=== PATIENT | female | born 1955 | race African-American/Black ===

== ENCOUNTER 2022-07-24 16:02 | Inpatient (IN) | payer MEDICARE, OTHER ==
[~2022-07-24] VITALS: Ht 170.2 cm; Wt 22.0 kg
[2022-07-24] MEDS ORDERED: ATENOLOL 25 MG TAB PO ONE (16:45)
[2022-07-24] MEDS ORDERED: MECLIZINE HCL 25 MG TAB PO ONE (19:15)
[2022-07-24] MEDS ORDERED: METOCLOPRAMIDE HCL 5MG/ml INJ 2ml VIAL IV ONE (19:15)
[2022-07-24 19:43] LABS: Basophils # (auto) 0.1 10 ^3/uL (0-0.2); Basophils % (auto) 1.4 % (0.0-2.0); Eosinophils # (auto) 0.1 10 ^3/uL (0-0.8); Eosinophils % (auto) 1.2 % (0.0-7.0); Hemoglobin 12.9 g/dL (12.2-16.2); Lymphocytes # (auto) 2.3 10 ^3/uL (0.4-5.4); Lymphocytes % (auto) 42.7 % (10.0-50.0); Mean Corpuscular Hemoglobin 31.9 pg (28.0-32.0); Mean Corpuscular Hgb Conc. 32.2 g/dL (32.0-36.0); Mean Corpuscular Volume 98.9 fL (80.0-100.0); Monocytes # (auto) 0.4 10 ^3/uL (0-1.3); Monocytes % (auto) 7.8 % (0.0-12.0); Neutrophils # (auto) 2.5 10 ^3/uL (1.6-8.6); Neutrophils % (auto) 46.9 % (37.0-80.0); Nucleated Red Blood Cells % 0.2 %; Red Blood Cells 4.05 10^6/uL (4.0-5.20); Red Cell Distribution Width 16.2 % (11.8-14.3); White Blood Cell 5.3 10^3/uL (4.4-10.8)
[2022-07-24] MEDS ORDERED: ENOXAPARIN SOD 100 MG/1 ML SYRINGE SC ONE (22:00)
[2022-07-24] MEDS ORDERED: ASPirin 325 MG TAB PO ONE (22:00)
[2022-07-24 23:07] LABS: Albumin 3.3 g/dL (3.4-5.0); Calcium 9.1 mg/dL (8.5-10.1); Magnesium 1.2 mg/dL (1.6-2.6); Potassium 5.5 mmol/L (3.5-5.1)
[2022-07-24 23:10] LABS: Bilirubin, Total 0.6 mg/dL (0.2-1.0); Total Protein 7.7 g/dL (6.4-8.2)
[2022-07-25] MEDS ORDERED: ONDANSETRON HCL 4 MG/2 ML VIAL IV PRN (00:45)
[2022-07-25] MEDS ORDERED: SODIUM ZIRCONIUM CYCL 10 GM PAK PO ONE (00:45)
[2022-07-25] MEDS ORDERED: NITROGLYCERIN 0.4 MG SL TAB SL PRN (00:45)
[2022-07-25] MEDS ORDERED: MORPHINE SULFATE INJ 2 MG/ml SYRG IV PRN (00:45)
[2022-07-25] MEDS ORDERED: DEXTROSE (50%) 50ML SYRG IV PRN (00:45)
[2022-07-25 02:46] LABS: INR 1.11 (0.9-1.15); Partial Thromboplastin Time 36.7 sec (24.6-33.4)
[2022-07-25] MEDS: InsuLIN REG 1unit/0.01ml Soln (100units/ml) SC SCH ×3 (06:00→18:39)
[2022-07-25] MEDS: ACCU-CHEK COMFORT CURVE STRIP VI SCH ×3 (06:19→18:39)
[2022-07-25 06:37] LABS: Urine Bacteria FEW /hpf (None Seen); Urine Blood 1+ /uL (Negative); Urine Mucus FEW (None Seen); Urine Specific Gravity 1.008 (1.001-1.035); Urine WBC 1 /hpf (0 - 5)
[2022-07-25 06:41] LABS: Alcohol, Urine < 3.0 mg/dL (0-10); Amphetamine Screen, Urine NEGATIVE (NEGATIVE); Barbiturate Scree,Urine NEGATIVE (NEGATIVE); Benzodiazephine Screen, Urine NEGATIVE (NEGATIVE); Cannabinoid Screen, Urine NEGATIVE (NEGATIVE); Cocaine Screen, Urine NEGATIVE (NEGATIVE); Opiate Scree,Urine NEGATIVE (NEGATIVE); Phencyclidine Screen, Urine NEGATIVE (NEGATIVE)
[2022-07-25] MEDS ORDERED: hydrALAZINE HCL 20 MG/ML VL IV PRN (09:30)
[2022-07-25] MEDS ORDERED: PANTOPRAZOLE 40 MG TAB PO SCH (10:00)
[2022-07-25 10:17] LABS: Creatinine, Urine 32 mg/dL (30.0-125.0); Sodium Urine 126 mmol/L (40-220)
[2022-07-25] MEDS: NIFEdipine ER 30 MG TAB PO SCH (10:25)
[2022-07-25] MEDS: ASPirin 81 mg TAB PO SCH (10:25)
[2022-07-25] MEDS: FUROSEMIDE 40 MG TAB PO SCH (10:26)
[2022-07-25] MEDS: ATENOLOL 25 MG TAB PO SCH ×2 (10:29→23:15)
[2022-07-25] MEDS: SODIUM BICARBONATE 50ML VIAL 50 ML in SOD CHL 0.45% 1,000 ML IV SCH ×2 (10:48→20:15)
[2022-07-25 18:39] LABS: Albumin 2.7 g/dL (3.4-5.0); BUN/Creatinine Ratio 15.2; Calcium 7.6 mg/dL (8.5-10.1); Potassium 3.9 mmol/L (3.5-5.1)
[2022-07-25 18:42] LABS: Bilirubin, Total 0.5 mg/dL (0.2-1.0); Total Protein 6.4 g/dL (6.4-8.2)
[2022-07-25 20:39] LABS: Hepatitis C Antibody Negative (Negative)
[2022-07-25] MEDS ORDERED: PRAVASTATIN SODIUM 20 MG TAB PO SCH (22:00)
[2022-07-25 22:53] VITALS: BP 135/70
[2022-07-25] MEDS: MECLIZINE HCL 25 MG TAB PO PRN (23:14)
[2022-07-25 23:56] VITALS: BP 135/77
[2022-07-26] MEDS ORDERED: ISON100T32 PO (00:13)
[2022-07-26] MEDS ORDERED: PSEU30TA3 PO (00:13)
[2022-07-26] MEDS: ACCU-CHEK COMFORT CURVE STRIP VI SCH ×5 (00:55→23:37)
[2022-07-26] MEDS: InsuLIN REG 1unit/0.01ml Soln (100units/ml) SC SCH ×5 (00:55→23:37)
[2022-07-26 05:00] VITALS: BP 129/71
[2022-07-26] MEDS: SODIUM BICARBONATE 50ML VIAL 50 ML in SOD CHL 0.45% 1,000 ML IV SCH ×2 (05:22→18:18)
[2022-07-26 06:19] LABS: Basophils # (auto) 0.1 10 ^3/uL (0-0.2); Basophils % (auto) 1.2 % (0.0-2.0); Eosinophils # (auto) 0.1 10 ^3/uL (0-0.8); Eosinophils % (auto) 2.4 % (0.0-7.0); Hematocrit 36.3 % (36.0-46.0); Hemoglobin 12.1 g/dL (12.2-16.2); Lymphocytes % (auto) 51.3 % (10.0-50.0); Mean Corpuscular Hemoglobin 32.6 pg (28.0-32.0); Mean Corpuscular Hgb Conc. 33.3 g/dL (32.0-36.0); Mean Corpuscular Volume 97.9 fL (80.0-100.0); Monocytes # (auto) 0.6 10 ^3/uL (0-1.3); Monocytes % (auto) 10.9 % (0.0-12.0); Neutrophils % (auto) 34.2 % (37.0-80.0); Nucleated Red Blood Cells % 0.2 %; Red Blood Cells 3.71 10^6/uL (4.0-5.20); Red Cell Distribution Width 15.6 % (11.8-14.3); White Blood Cell 5.9 10^3/uL (4.4-10.8)
[2022-07-26 06:30] LABS: Calcium 8.1 mg/dL (8.5-10.1); Potassium 4.2 mmol/L (3.5-5.1)
[2022-07-26 06:33] LABS: BUN/Creatinine Ratio 15.5
[2022-07-26 06:35] LABS: Bilirubin, Total 0.5 mg/dL (0.2-1.0); Total Protein 6.2 g/dL (6.4-8.2)
[2022-07-26 09:00] VITALS: BP 132/75
[2022-07-26] MEDS: ASPirin 81 mg TAB PO SCH (09:54)
[2022-07-26] MEDS: NIFEdipine ER 30 MG TAB PO SCH (09:55)
[2022-07-26] MEDS: FUROSEMIDE 40 MG TAB PO SCH (09:56)
[2022-07-26] MEDS: ATENOLOL 25 MG TAB PO SCH ×2 (09:56→21:40)
[2022-07-26 13:00] VITALS: BP 122/72
[2022-07-26 17:00] VITALS: BP 118/65
[2022-07-26] MEDS ORDERED: ASPITAB34 PO (18:43)
[2022-07-26] MEDS ORDERED: ISON300T68 PO (18:43)
[2022-07-26] MEDS ORDERED: LINA145C PO (18:43)
[2022-07-26] MEDS ORDERED: SODI10PA PO (18:43)
[2022-07-26] MEDS ORDERED: INSUINJ37 SC (18:43)
[2022-07-26] MEDS ORDERED: PRAV20TA3 PO (18:43)
[2022-07-26] MEDS ORDERED: PANT40TA2 PO (18:43)
[2022-07-26] MEDS ORDERED: ALLO100T PO (18:43)
[2022-07-26] MEDS ORDERED: FURO40TA4 PO (18:43)
[2022-07-26] MEDS ORDERED: ATEN-60 PO (18:43)
[2022-07-26] MEDS ORDERED: CALC0.25 PO (18:43)
[2022-07-26] MEDS ORDERED: FLUO-125 PO (18:43)
[2022-07-26] MEDS: traMADol HCL 50 MG TAB PO PRN (23:46)
[2022-07-27] MEDS: SODIUM BICARBONATE 50ML VIAL 50 ML in SOD CHL 0.45% 1,000 ML IV SCH (03:07)
[2022-07-27 05:00] VITALS: BP 114/80
[2022-07-27] MEDS: InsuLIN REG 1unit/0.01ml Soln (100units/ml) SC SCH ×4 (06:00→23:40)
[2022-07-27] MEDS: ACCU-CHEK COMFORT CURVE STRIP VI SCH ×4 (06:19→23:40)
[2022-07-27 07:08] LABS: Albumin 2.9 g/dL (3.4-5.0); Calcium 7.9 mg/dL (8.5-10.1); Potassium 4.1 mmol/L (3.5-5.1)
[2022-07-27 07:13] LABS: BUN/Creatinine Ratio 15.3; Bilirubin, Total 0.6 mg/dL (0.2-1.0); Total Protein 6.2 g/dL (6.4-8.2)
[2022-07-27 08:44] VITALS: BP 111/63
[2022-07-27] MEDS: NIFEdipine ER 30 MG TAB PO SCH (10:34)
[2022-07-27] MEDS: ASPirin 81 mg TAB PO SCH (10:39)
[2022-07-27] MEDS: FUROSEMIDE 40 MG TAB PO SCH (10:39)
[2022-07-27] MEDS: ATENOLOL 25 MG TAB PO SCH ×2 (10:40→22:11)
[2022-07-27] MEDS: SODIUM CHLORIDE 0.9% 1,000 ML IV SCH ×2 (10:41→22:20)
[2022-07-27] MEDS: traMADol HCL 50 MG TAB PO PRN (10:55)
[2022-07-27 12:43] VITALS: BP 126/70
[2022-07-27 15:55] VITALS: BP 99/49
[2022-07-27] MEDS: MECLIZINE HCL 25 MG TAB PO PRN (18:34)
[2022-07-27 20:00] VITALS: BP 118/66
[2022-07-27 22:00] VITALS: BP 118/66
[2022-07-28 05:00] VITALS: BP 113/49
[2022-07-28] MEDS: ACCU-CHEK COMFORT CURVE STRIP VI SCH ×4 (05:25→23:35)
[2022-07-28] MEDS: InsuLIN REG 1unit/0.01ml Soln (100units/ml) SC SCH ×4 (05:25→23:35)
[2022-07-28 06:46] LABS: Albumin 2.9 g/dL (3.4-5.0); Calcium 7.3 mg/dL (8.5-10.1); Potassium 3.9 mmol/L (3.5-5.1)
[2022-07-28 06:51] LABS: BUN/Creatinine Ratio 17.7; Bilirubin, Total 0.5 mg/dL (0.2-1.0); Total Protein 6.3 g/dL (6.4-8.2)
[2022-07-28 09:00] VITALS: BP 123/69
[2022-07-28] MEDS: ATENOLOL 25 MG TAB PO SCH ×2 (10:00→23:30)
[2022-07-28] MEDS: ASPirin 81 mg TAB PO SCH (10:33)
[2022-07-28] MEDS: FUROSEMIDE 40 MG TAB PO SCH (10:35)
[2022-07-28] MEDS: NIFEdipine ER 30 MG TAB PO SCH (10:35)
[2022-07-28] MEDS: SODIUM CHLORIDE 0.9% 1,000 ML IV SCH (10:41)
[2022-07-28] MEDS ORDERED: ERGOCALCIFEROL 50,000 UNIT(1.25MG) CAP PO SCH (11:15)
[2022-07-28 13:00] VITALS: BP 125/66
[2022-07-28 13:44] LABS: Hepatitis A Ab IgM Negative
[2022-07-28 13:45] LABS: Hepatitis B Core IgM Negative; Hepatitis C Antibody Negative (Negative)
[2022-07-28 16:38] VITALS: BP 116/56
[2022-07-28] MEDS: traMADol HCL 50 MG TAB PO PRN (18:30)
[2022-07-28 20:10] VITALS: BP 138/68
[2022-07-28] MEDS ORDERED: MORPHINE SULFATE INJ 2 MG/ml SYRG IV ONE (21:15)
[2022-07-28] MEDS: MECLIZINE HCL 25 MG TAB PO PRN (21:18)
[2022-07-28 22:16] VITALS: BP 138/68
[2022-07-29] MEDS: ACCU-CHEK COMFORT CURVE STRIP VI SCH ×2 (05:25→13:10)
[2022-07-29] MEDS: InsuLIN REG 1unit/0.01ml Soln (100units/ml) SC SCH ×2 (05:26→13:11)
[2022-07-29 05:37] VITALS: BP 123/74
[2022-07-29 06:03] LABS: Potassium 5.1 mmol/L (3.5-5.1)
[2022-07-29 06:14] LABS: BUN/Creatinine Ratio 17.3; Bilirubin, Total 2.6 mg/dL (0.2-1.0); Calcium 7.7 mg/dL (8.5-10.1); Total Protein 6.4 g/dL (6.4-8.2)
[2022-07-29 08:25] VITALS: BP 123/71
[2022-07-29 09:01] VITALS: BP 123/71
[2022-07-29] MEDS: ASPirin 81 mg TAB PO SCH (09:13)
[2022-07-29] MEDS: FUROSEMIDE 40 MG TAB PO SCH (09:13)
[2022-07-29] MEDS: NIFEdipine ER 30 MG TAB PO SCH (09:13)
[2022-07-29] MEDS: ATENOLOL 25 MG TAB PO SCH (09:15)
[2022-07-29] MEDS ORDERED: LINZESS 145 MCG PO PRN (10:00)
[2022-07-29 13:00] VITALS: BP 99/62
[2022-07-29] MEDS ORDERED: ERGO1CAP23 PO (13:04)
[2022-07-29 15:51] VITALS: BP 122/67
== END 2022-07-29 16:30 | disposition home or self-care (01) | DRG 441 ==
LOC: ER 16:02 → EDBD 16:02 → TELE 07-25 00:37 → TELE-WESTW 07-25 22:48 → WEST WING 07-27 11:54
PROVIDERS: ADMIT Nurse Practitioner; ATTEND Internal Medicine
DX: K72.00 Acute and subacute hepatic failure without coma (principal); I21.A1 Myocardial infarction type 2; N17.0 Acute kidney failure with tubular necrosis; E44.0 Moderate protein-calorie malnutrition; N18.4 Chronic kidney disease, stage 4 (severe); E87.2 Acidosis; B17.9 Acute viral hepatitis, unspecified; E87.5 Hyperkalemia; G43.909 Migraine, unspecified, not intractable, without status migrainosus; R79.89 Other specified abnormal findings of blood chemistry; Z20.822 Contact with and (suspected) exposure to COVID-19; E11.22 Type 2 diabetes mellitus with diabetic chronic kidney disease; E55.9 Vitamin D deficiency, unspecified; I12.9 Hypertensive chronic kidney disease with stage 1 through stage 4 chronic kidney disease, or unspecified chronic kidney disease; Z76.82 Awaiting organ transplant status; Z80.0 Family history of malignant neoplasm of digestive organs; Z90.710 Acquired absence of both cervix and uterus; Z68.26 Body mass index [BMI] 26.0-26.9, adult; T37.1X5A Adverse effect of antimycobacterial drugs, initial encounter; Z79.4 Long term (current) use of insulin
CPT/HCPCS: 36415; 70450; 71045; 76705; 78226; 80053; 80074; 80307; 81001; 82306; 82570; 82962; 83036; 83735; 83880; 83970; 84100; 84156; 84300; 84443; 84484; 85025; 85610; 85730; 86803; 87340; 93005; 93306; 96372; 96374; 99291; G0378; J1815; J2405

== ENCOUNTER 2023-05-30 17:35 | Emergency (ER) | payer BC, MEDICARE ==
[~2023-05-30] VITALS: Ht 160 cm; Wt 81.0 kg
[~2023-05-30 17:35] MED LIST: ALLO100T PO; ASPITAB34 PO; ATEN-60 PO; CALC0.25 PO; ERGO1CAP23 PO; FLUO-125 PO; FURO40TA4 PO; INSUINJ37 SC; LINA145C PO; PANT40TA2 PO; SODI10PA PO
[2023-05-30 17:56] VITALS: BP 146/74; PULSE 86; RESP 17; O2SAT 96
== END 2023-05-30 18:34 | disposition left against medical advice (07) ==
LOC: EDBD 17:35 → ER 17:35
DX: T81.89XD Other complications of procedures, not elsewhere classified, subsequent encounter (principal); Z53.21 Procedure and treatment not carried out due to patient leaving prior to being seen by health care provider

== ENCOUNTER 2025-03-21 19:41 | Inpatient (IN) | payer BC, MEDICARE ==
[~2025-03-21] VITALS: Ht 157.5 cm; Wt 79.1 kg
--- NOTE | 2025-03-21 19:57 | ED.PDOC ---
Altered Mental Status HPI Comments 69-year-old female who came to ER via EMS for altered level of consciousness/hypo glycemia. Per EMS, patient does have history of diabetes and chronic kidney failure. Noted that her blood sugar was 43 earlier, so she was advised to take her insulin before eating her dinner. Patient became altered and confused noted of her blood sugar went down to 22. Paramedics came patient was given [id number] and blood sugar improved to 197. When questioned, patient has no recollection of what happened Chief Complaint: ALOC Time Seen by MD: 19:56 Primary Care Provider: UNKNOWN Reviewed Notes: Arborist Notes Allergies: Coded Allergies: Hydrocortisone (Verified Allergy, Unknown, 03/21/25) Home Meds Active Scripts Ergocalciferol (VITAMIN D 78104 UNIT) 50,[address] [place], [address] UNIT PO Q7D for 10 Days, #10 CAP Prov:JAZMIN SPEARS MD 07/29/22 Reported Medications Edmyqbo-Ekdwoegchiyai-Cjwokcov (Excedrin Migraine) Migraine Tab, 2 TAB PO BID, TAB 07/26/22 Calcitriol (Calcitriol) 0.25 Mcg Cap, 0.25 MCG PO DAILY, MCG 07/26/22 Fluoxetine Hcl (Fluoxetine Hcl) 20 Mg Cap, 20 MG PO DAILY, MG 07/26/22 Pantoprazole Sodium Sesquihydr (Protonix) 40 Mg Tab, 1 TAB PO DAILY, #30 TAB 07/26/22 Allopurinol (Allopurinol) 100 Mg Tab, 100 MG PO DAILY, MG 07/26/22 Insulin Glargine (Lantus Solostar) 100 Unit/Ml Inj, 24 UNIT SC HS, INJ 07/26/22 Linaclotide Base (LINZESS) 145 Mcg Cap, 1 CAP PO DAILY, CAP 07/26/22 Sodium Zirconium Cyclosilicate (Lokelma) 10 Gm Ramírez, 10 GM PO DAILY, PACK 07/26/22 Furosemide (Furosemide) 40 Mg Tab, 1 TAB PO TWICE A WEEK, MG 07/26/22 Atenolol (Atenolol) 25 Mg Tab, 0.5 TAB PO DAILY, MG 07/26/22 Information Source: Emergency Med Personnel Mode of Arrival: EMS Severity: Unable to Care for Self Timing: Minutes Duration: Since onset Prehospital treatment: IVF Quality: Decreased Alertness, Change in Behavior, Confusion Recent: Medication/Drug Abuse History of: Diabetes, Hypoglycemia Past Medical History PAST MEDICAL HISTORY: CHF, DM, ESRD, HTN Surgical History: Hysterectomy, Tonsillectomy Surgical History (Other): Kidney transplant BACKUP SAWYER History: Denies all BACKUP SAWYER Hx Family History Family History: Reviewed,noncontributory to illness Social History Smoker: Non-Smoker Alcohol: Denies ETOH Use Drugs: Denies Drug Use Lives In: Home Unable to Obtain due to: Altered Mental Status Physical Exam General Appearance: No Apparent Distress, Normal HEENT: Normal ENT Inspection, Pharynx Normal, TMs Normal Neck: Full Range of Motion, Non-Tender, Normal, Normal Inspection Respiratory: Chest Non-Tender, Lungs Clear, No Accessory Muscle Use, No Respiratory Distress, Normal Breath Sounds Cardiovascular: No Edema, No JVD, No Murmur, No Gallop, Normal Peripheral Pulses, Regular Rate/Rhythm Breast Exam: Deferred Gastrointestinal: No Organomegaly, Non Tender, No Pulsatile Mass, Normal Bowel Sounds, Soft Genitalia: Deferred Pelvic: Deferred Rectal: Deferred Extremities: No calf tenderness, Normal capillary refill, Normal inspection, Normal range of motion, Non-tender, No pedal edema Musculoskeletal : Apperance: Normal Neurologic: Alert, 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 Was a procedure done?: No Differential Diagnosis (ALOC) Differential Diagnosis: Hypoglycemia, Encephalopathy, Renal Failure X-Ray, Labs, Meds, VS Vital Signs Date Time Temp Pulse Resp B/P (MAP) Pulse Ox O2 Delivery O2 Flow Rate FiO2 03/21/25 19:43 98.1 57 18 135/73 (93) 98 98.1 Lab Test 03/21/25 21:35 03/21/25 20:50 Range/Units POC Glucose 46 *L 70-106 mg/dl White Blood Count 6.3 4.4-10.8 10^3/uL Red Blood Count 4.37 4.0-5.20 10^6/uL Hemoglobin 12.9 12.2-16.2 g/dL Hematocrit 39.8 36.0-46.0 % Mean Corpuscular Volume 91.1 80.0-100.0 fL Mean Corpuscular Hemoglobin 29.5 28.0-32.0 pg Mean Corpuscular Hemoglobin Concent 32.4 32.0-36.0 g/dL Red Cell Distribution Width 15.0 H 11.8-14.3 % Platelet Count 195 140-450 10^3/uL Mean Platelet Volume 9.6 6.9-10.8 fL Neutrophils (%) (Auto) 52.9 37.0-80.0 % Lymphocytes (%) (Auto) 36.4 10.0-50.0 % Monocytes (%) (Auto) 9.3 0.0-12.0 % Eosinophils (%) (Auto) 0.9 0.0-7.0 % Basophils (%) (Auto) 0.5 0.0-2.0 % Neutrophils # (Auto) 3.3 1.6-8.6 10 ^3/uL Lymphocytes # (Auto) 2.3 0.4-5.4 10 ^3/uL Monocytes # (Auto) 0.6 0-1.3 10 ^3/uL Eosinophils # (Auto) 0.1 0-0.8 10 ^3/uL Basophils # (Auto) 0 0-0.2 10 ^3/uL Nucleated Red Blood Cells 0.0 % Sodium Level 140 136-145 mmol/L Potassium Level 4.8 3.5-5.1 mmol/L Chloride Level 106 98-107 mmol/L Carbon Dioxide Level 24 20-31 mmol/L Anion Gap 10 5-15 Blood Urea Nitrogen 21 9-23 mg/dL Creatinine 1.08 H 0.550-1.02 mg/dL Glomerular Filtration Rate Calc 55 >90 mL/min BUN/Creatinine Ratio 19.4 10.0-20.0 Serum Glucose 43 *L 74-106 mg/dL Calcium Level 10.5 H 8.7-10.4 mg/dL Total Bilirubin 0.3 0.2-1.0 mg/dL Aspartate Amino Transferase (AST) 23 13-40 U/L Alanine Aminotransferase (ALT) 18 7-40 U/L Alkaline Phosphatase 46 46-116 U/L Total Protein 7.3 5.7-8.2 g/dL Albumin 4.7 3.2-4.8 g/dL Current Medications Medications (Trade) Dose Ordered Sig/Kendrick Route Start Time Stop Time Status Last Admin Dextrose 50 ml ONCE ONCE IV 03/21/25 21:45 03/21/25 21:46 DC 03/21/25 21:44 Time of 1ST Reevaluation: 19:53 Reevaluation 1ST: Unchanged Patient Education/Counseling: Diagnosis, Treatment Family Education/Counseling: No Family Present Departure 1 Departure Time of Disposition: 21:45 Impression: Primary Impression: Hypoglycemia Additional Impressions: Insulin overdose CKD (chronic kidney disease) Disposition: ADMITTED INPATIENT Admit to: Med Surg Condition: Guarded Discharged With: Self Comments Hypoglycemia with Altered Mental Status Chief Complaint: Altered mental status due to hypoglycemia History of Present Illness: 69-year-old female with type 2 diabetes on insulin therapy presented to the ED after an episode of altered mental status at home. Patient reportedly administ ered 20 units of insulin prior to dinner. While eating, she became emotional and confused, prompting EMS response. Initial blood glucose by EMS was critically low at 20 mg/dL. She received D10 in the field with improvement in mental status. Her glucose increased to 180 mg/dL post-intervention, and was 105 mg/dL upon ED arrival. However, subsequent lab glucose measurements showed recurrent hypoglycemia with values of 43 mg/dL and 46 mg/dL, requiring additional IV dextrose administration. Review of Systems: Limited due to patient's presentation Constitutional: Altered mental status, now improved Neurological: Confusion, emotional lability during hypoglycemic episode Lab Results: Blood Glucose Measurements: - EMS: 20 mg/dL - Post D10: 180 mg/dL - ED arrival: 105 mg/dL - Subsequent readings: 43 mg/dL, 46 mg/dL CBC: Unremarkable Basic Metabolic Panel: - Creatinine: 1.08 mg/dL (borderline elevated) - BUN: 21 mg/dL (normal) Imaging and Other Relevant Results: No imaging studies documented Medical Decision Making: Summary Statement: 69-year-old female with type 2 diabetes presenting with altered mental status due to severe insulin-induced hypoglycemia, showing recurrent hypoglycemic episodes despite initial treatment. Problem List: 1. Severe hypoglycemia with altered mental status 2. Type 2 diabetes mellitus 3. Borderline renal insufficiency Differential Diagnosis: 1. Insulin overdose 2. Decreased oral intake 3. Changes in insulin sensitivity 4. Medication interaction 5. Underlying infection affecting glucose metabolism ED Course: Patient received initial D10 by EMS with temporary improvement. Required additional IV dextrose in ED for recurrent hypoglycemia. Basic labs obtained showing borderline renal insufficiency. Given persistent hypoglycemia risk, decision made to admit for glucose monitoring and insulin adjustment. Assessment and Plan: 1. Severe Hypoglycemia with Altered Mental Status - Admit to medical floor for close glucose monitoring - Frequent blood glucose checks - Review and adjust insulin regimen - Endocrinology consultation recommended 2. Type 2 Diabetes Mellitus - Comprehensive diabetes medication review - Evaluate current insulin dosing and timing - Diabetes education prior to discharge 3. Borderline Renal Insufficiency - Monitor renal function - Adjust medications as needed based on renal function Billing Information: ICD-10: E16.0 - Drug-induced hypoglycemia without coma ICD-10: E11.649 - Type 2 diabetes mellitus with hypoglycemia without coma ICD-10: R41.82 - Altered mental status, unspecified Critical Care Note Critical Care Time?: Yes (35 min-critical care time only) Critical care comment: Hypoglycemia Stability Stability form required: No Heart Score Heart Score: Heart Score Response (Comments) Value History N/A 0 EKG N/A 0 Age N/A 0 Risk Factors N/A 0 Troponin N/A 0 Total 0 I personally scribed for DALTON CAGE MD ([email or web address]) on 03/21/25 at 19:57. Electronically submitted by Brodie Bowers ([facility]). DALTON CAGE MD March 21, 2025 19:57
[2025-03-21 21:04] LABS: Basophils # (auto) 0 10 ^3/uL (0-0.2); Basophils % (auto) 0.5 % (0.0-2.0); Eosinophils # (auto) 0.1 10 ^3/uL (0-0.8); Eosinophils % (auto) 0.9 % (0.0-7.0); Hematocrit 39.8 % (36.0-46.0); Hemoglobin 12.9 g/dL (12.2-16.2); Lymphocytes # (auto) 2.3 10 ^3/uL (0.4-5.4); Lymphocytes % (auto) 36.4 % (10.0-50.0); Mean Corpuscular Hemoglobin 29.5 pg (28.0-32.0); Mean Corpuscular Hgb Conc. 32.4 g/dL (32.0-36.0); Mean Corpuscular Volume 91.1 fL (80.0-100.0); Monocytes # (auto) 0.6 10 ^3/uL (0-1.3); Monocytes % (auto) 9.3 % (0.0-12.0); Neutrophils # (auto) 3.3 10 ^3/uL (1.6-8.6); Neutrophils % (auto) 52.9 % (37.0-80.0); Platelet Count (auto) 195 10^3/uL (140-450); Red Blood Cells 4.37 10^6/uL (4.0-5.20); White Blood Cell 6.3 10^3/uL (4.4-10.8)
[2025-03-21 21:18] LABS: Alanine Aminotransferase 18 U/L (7-40); Albumin 4.7 g/dL (3.2-4.8); Anion Gap 10 (5-15); Aspartate Aminotransferase 23 U/L (13-40); BUN/Creatinine Ratio 19.4 (10.0-20.0); Bilirubin, Total 0.3 mg/dL (0.2-1.0); Blood Urea Nitrogen 21 mg/dL (9-23); Carbon Dioxide 24 mmol/L (20-31); Chloride 106 mmol/L (98-107); Potassium 4.8 mmol/L (3.5-5.1); Sodium 140 mmol/L (136-145); Total Protein 7.3 g/dL (5.7-8.2)
[2025-03-21 21:25] LABS: Alkaline Phosphatase 46 U/L (46-116); Calcium 10.5 mg/dL (8.7-10.4)
[2025-03-21 21:28] LABS: Glucose 43 mg/dL (74-106)
[2025-03-21] MEDS: DEXTROSE 50% SYRINGE 50 ML IV ONE (21:44)
[2025-03-21] MEDS: DEXTROSE (50%) 50ML SYRG IV ONE (21:44)
--- NOTE | 2025-03-21 23:21 | DVHHP2 ---
History of Present Illness History of Present Illness Patient is 69 years old female with a past medical history of hypertension, diabetes mellitus, ESRD, status post renal transplant 2 years before at [facility], history of breast carcinoma left, status post surgery and radiation, history of bilateral pulmonary embolism following renal transplant surgery was brought in by EMS due to altered mental status. As per patient and her patient to insulin before meal around 5:00 p.m. and she got confused and sweaty and her blood pressure was found to have 22. On arrival of EMS patient's blood sugar was 43, patient was given D10. Blood sugar brought up to 197. Patient denied any chest pain, shortness of breath, acute dysuria, acute joint pain or swelling. Initial lab workup revealed blood sugar 43, serum creatinine 1.08. Past Medical History hypertension, diabetes mellitus, ESRD, status post renal transplant 2 years before at [facility], history of breast carcinoma left, status post surgery and radiation, history of bilateral pulmonary embolism Past Surgical History Hysterectomy, tonsillectomy, left breast surgery for carcinoma of the breast Past Social History Lives With the , denies smoking/alcoholism/drug abuse Home medications-Prozac, mycophenolate/mgfortic, Eliquis, Protonix, Enversus XR, mg +protein, vitamin D3, calcium, Coreg, Linzess, Fosamax, Femara, prednisolone, Lasix, on fast acting insulin Review of Systems Review of Systems Allergy- hydrocodone Patient was seen today at the bedside. Cardiovascular- deny acute chest pain or shortness of breath or cough or palpitation Respiratory denies cough or short of breath or wheezing Gastrointestinal- denies any rectal bleeding, nausea or vomiting Musculoskeletal-denies acute joint swelling or tenderness or redness Psychiatry- denies depression or SI or HI Skin- denies acute rash or purpura Allergies: Coded Allergies: Hydrocortisone (Verified Allergy, Unknown, 03/21/25) Metronidazole (Verified Allergy, Unknown, 03/22/25) Exam Vital Signs Vital Signs Date Time Temp Pulse Resp B/P (MAP) Pulse Ox O2 Delivery O2 Flow Rate FiO2 03/21/25 22:02 97.6 64 17 135/95 (108) 94 97.6 Exam General examination- awake, alert, oriented, conversant HEENT- PEERLA, no acute nasal discharge Cardiovascular- S1-S2 audible, rate and rhythm regular, no murmur Respiratory- CTAB, no wheeze or rhonchi Gastrointestinal-nontender, bowel sound+. Nondistended Musculoskeletal-no acute joint swelling or tenderness or redness Lower extremity- bilateral trace leg edema+ Neurological- cranial nerves intact, no acute dysarthria or dysphagia Psychiatry- denies depression or SI or HI Skin- no acute rash or purpura Labs/Xrays Labs Test 03/21/25 21:35 03/21/25 20:50 Range/Units POC Glucose 46 *L 70-106 mg/dl White Blood Count 6.3 4.4-10.8 10^3/uL Red Blood Count 4.37 4.0-5.20 10^6/uL Hemoglobin 12.9 12.2-16.2 g/dL Hematocrit 39.8 36.0-46.0 % Mean Corpuscular Volume 91.1 80.0-100.0 fL Mean Corpuscular Hemoglobin 29.5 28.0-32.0 pg Mean Corpuscular Hemoglobin Concent 32.4 32.0-36.0 g/dL Red Cell Distribution Width 15.0 H 11.8-14.3 % Platelet Count 195 140-450 10^3/uL Mean Platelet Volume 9.6 6.9-10.8 fL Neutrophils (%) (Auto) 52.9 37.0-80.0 % Lymphocytes (%) (Auto) 36.4 10.0-50.0 % Monocytes (%) (Auto) 9.3 0.0-12.0 % Eosinophils (%) (Auto) 0.9 0.0-7.0 % Basophils (%) (Auto) 0.5 0.0-2.0 % Neutrophils # (Auto) 3.3 1.6-8.6 10 ^3/uL Lymphocytes # (Auto) 2.3 0.4-5.4 10 ^3/uL Monocytes # (Auto) 0.6 0-1.3 10 ^3/uL Eosinophils # (Auto) 0.1 0-0.8 10 ^3/uL Basophils # (Auto) 0 0-0.2 10 ^3/uL Nucleated Red Blood Cells 0.0 % Sodium Level 140 136-145 mmol/L Potassium Level 4.8 3.5-5.1 mmol/L Chloride Level 106 98-107 mmol/L Carbon Dioxide Level 24 20-31 mmol/L Anion Gap 10 5-15 Blood Urea Nitrogen 21 9-23 mg/dL Creatinine 1.08 H 0.550-1.02 mg/dL Glomerular Filtration Rate Calc 55 >90 mL/min BUN/Creatinine Ratio 19.4 10.0-20.0 Serum Glucose 43 *L 74-106 mg/dL Calcium Level 10.5 H 8.7-10.4 mg/dL Total Bilirubin 0.3 0.2-1.0 mg/dL Aspartate Amino Transferase (AST) 23 13-40 U/L Alanine Aminotransferase (ALT) 18 7-40 U/L Alkaline Phosphatase 46 46-116 U/L Total Protein 7.3 5.7-8.2 g/dL Albumin 4.7 3.2-4.8 g/dL Assessment/Plan Assessment/Plan Assessment and plan- patient came with the confusion, agitation, sweaty due to hypoglycemia likely insulin induced Metabolic encephalopathy likely due to hypoglycemia Acute hypoglycemia likely insulin induced Bilateral trace leg edema likely due to CKD hypertension, diabetes mellitus, ESRD, status post renal transplant 2 years before at [facility], history of breast carcinoma left, status post surgery and radiation, history of bilateral pulmonary embolism following renal transplant surgery Plan Ordered dextrose 5% Acute check q.4h Hold insulin, monitor blood sugar level to avoid recurrent hypoglycemia Is to resume home medications- Prozac, mycophenolate/mgfortic, Eliquis, Protonix, Enversus XR, mg +protein, vitamin D3, calcium, Coreg, Linzess, Fosamax, Femara, prednisolone, Lasix, Monitor blood sugar Goals of care, Code status ; discussed with >15 minutes PUD prophylaxis: Pantoprazole DVT prophylaxis: Eliquis Plan discussed with Dr. Spears , nursing staff, Total time spent on patient evaluation, chart review, assessment and plan, discussion discussion >35 minutes Plan discussed with: Patient, Spouse My Orders Orders - JANEEN PRATT RESIDENT Procedure Category Date Status Time Admit ADMIT 03/21/25 Verified 23:18 Code Status CODE 03/21/25 Verified 23:18 Renal DIET 03/22/25 Verified Standard(2gna,3gk,Lopho) Breakfast Sodium Chloride Lock PHA 03/22/25 Verified (Saline Lock Ns) 06:00 Ondansetron Hcl PHA 03/21/25 Verified (Zofran) 23:30 Docusate Sodium PHA 03/21/25 Verified Capsule (Colace 23:30 Complete Blood Count LAB 03/22/25 Verified 04:00 Comprehensive LAB 03/22/25 Verified Metabolic Panel 04:00 Cardiac DIET 03/22/25 Verified Diet-2gna,Lofat,Lochol Breakfast Enoxaparin Sodium PHA 03/22/25 Verified (Lovenox) 10:00 Acetaminophen Tablet PHA 03/21/25 Verified (Tylenol Tablet) 23:30 Notify Of Changes [facility] 03/21/25 Verified From Base 23:18 Brass Polisher For [facility] 03/21/25 Verified 24 Hours 23:18 Date of Service: March 21, 2025 Billing Provider: JAZMIN SPEARS MD Common Visit Codes: [id number] INP/OBS CARE (HIGH) Secondary Visit Codes: [id number] CARE PLAN 30 MINUTES JANEEN PRATT RESIDENT March 21, 2025 23:21
[2025-03-21] MEDS: ONDANSETRON HCL 4 MG/2 ML VIAL IV ONE (23:23)
[2025-03-21] MEDS ORDERED: DOCUSATE SOD 100 MG CAP PO PRN (23:30)
[2025-03-22] VITALS (9 sets, daily range): BP systolic 131–157; BP diastolic 75–91; PULSE 65–77; RESP 16–20; TEMP 97.1–98.1; O2SAT 93–96
[2025-03-22] MEDS ORDERED: ACCU-CHEK COMFORT CURVE STRIP VI PRN (01:15)
[2025-03-22] MEDS ORDERED: LETR2.5T6 PO (03:04)
[2025-03-22] MEDS ORDERED: MYCO1TAB PO (03:04)
[2025-03-22] MEDS ORDERED: LINA1CAP2 PO (03:04)
[2025-03-22] MEDS ORDERED: PRE5T PO (03:04)
[2025-03-22] MEDS ORDERED: ALEN70TA74 PO (03:04)
[2025-03-22] MEDS ORDERED: INSU100I54 SC (03:04)
[2025-03-22] MEDS ORDERED: TACR200T PO (03:04)
[2025-03-22] MEDS ORDERED: PANT40T PO (03:04)
[2025-03-22] MEDS ORDERED: INSU1INJ14 SC (03:04)
[2025-03-22] MEDS ORDERED: APIX5TAB PO (03:04)
[2025-03-22] MEDS ORDERED: CARV6.2551 PO (03:04)
[2025-03-22] MEDS ORDERED: FLUO-470 PO (03:04)
[2025-03-22] MEDS: DEXTROSE 10% 250 ML Bag IV ONE (03:22)
[2025-03-22] MEDS: CARVEDILOL 3.125 MG TAB PO ONE (05:45)
[2025-03-22] MEDS: SODIUM CHLOR 0.9% PF (SALINE LOCK) 10ML VIAL/SYR IV SCH (05:57)
[2025-03-22] MEDS ORDERED: TACR1CAP4 PO (06:07)
[2025-03-22 07:15] LABS: Urine Bacteria None Seen /hpf (None Seen)
[2025-03-22 07:20] LABS: Urine Blood Negative /uL (Negative); Urine Clarity Clear (Clear); Urine Color Colorless (Yellow); Urine Protein, UAD Negative (Negative); Urine Specific Gravity 1.006 (1.001-1.035); Urine Squamous Epithelial Cell FEW /hpf (<5); Urine Urobilinogen Normal (Negative)
[2025-03-22 07:24] LABS: Basophils # (auto) 0 10 ^3/uL (0-0.2); Basophils % (auto) 0.3 % (0.0-2.0); Eosinophils # (auto) 0 10 ^3/uL (0-0.8); Eosinophils % (auto) 0.8 % (0.0-7.0); Hematocrit 37.1 % (36.0-46.0); Hemoglobin 12.2 g/dL (12.2-16.2); Lymphocytes # (auto) 2.4 10 ^3/uL (0.4-5.4); Lymphocytes % (auto) 40.6 % (10.0-50.0); Mean Corpuscular Hemoglobin 29.8 pg (28.0-32.0); Mean Corpuscular Hgb Conc. 32.9 g/dL (32.0-36.0); Mean Corpuscular Volume 90.5 fL (80.0-100.0); Monocytes # (auto) 0.5 10 ^3/uL (0-1.3); Monocytes % (auto) 8.4 % (0.0-12.0); Neutrophils # (auto) 2.9 10 ^3/uL (1.6-8.6); Neutrophils % (auto) 49.9 % (37.0-80.0); Nucleated Red Blood Cells % 0.1 %; Platelet Count (auto) 163 10^3/uL (140-450); Red Cell Distribution Width 14.8 % (11.8-14.3); White Blood Cell 5.8 10^3/uL (4.4-10.8)
[2025-03-22 07:30] LABS: Alanine Aminotransferase 13 U/L (7-40); Albumin 4.1 g/dL (3.2-4.8); Anion Gap 9 (5-15); Aspartate Aminotransferase 20 U/L (13-40); Bilirubin, Total 0.3 mg/dL (0.2-1.0); Blood Urea Nitrogen 19 mg/dL (9-23); Carbon Dioxide 27 mmol/L (20-31); Chloride 104 mmol/L (98-107); Potassium 4.6 mmol/L (3.5-5.1); Sodium 140 mmol/L (136-145); Total Protein 6.4 g/dL (5.7-8.2)
[2025-03-22 07:31] LABS: Alkaline Phosphatase 41 U/L (46-116); Glucose 200 mg/dL (74-106); Magnesium 1.6 mg/dL (1.6-2.6)
[2025-03-22] MEDS: ACCU-CHEK COMFORT CURVE STRIP VI SCH ×2 (09:15→17:30)
[2025-03-22] MEDS: CARVEDILOL 3.125 MG TAB PO SCH (09:30)
[2025-03-22] MEDS: FLUoxetine HCL 20 MG CAP PO SCH (10:00)
[2025-03-22] MEDS ORDERED: ENOXAPARIN SOD 30 MG/0.3 ML SYRINGE SC SCH (10:00)
[2025-03-22] MEDS ORDERED: TACROLIMUS 1 MG CAP PO SCH (10:00)
[2025-03-22] MEDS ORDERED: LINACLOTIDE BASE PO SCH (10:00)
[2025-03-22] MEDS: PANTOPRAZOLE 40 MG TAB PO SCH (10:00)
[2025-03-22] MEDS ORDERED: ALLOPURINOL 100 MG TAB PO SCH (10:00)
[2025-03-22] MEDS: APIXABAN 5 MG TAB PO SCH (10:00)
[2025-03-22] MEDS: MYCOPHENOLATE SODIUM 180 MG PO SCH (10:00)
[2025-03-22] MEDS: FUROSEMIDE 40 MG TAB PO SCH (10:00)
[2025-03-22] MEDS: CALCITRIOL 0.25 MCG CAP PO SCH (10:00)
[2025-03-22] MEDS: Letrozole 2.5 MG TABLET PO SCH (10:00)
[2025-03-22] MEDS ORDERED: ATENOLOL 25 MG TAB PO SCH (10:00)
[2025-03-22] MEDS: D5W 5% 1,000 ML IV SCH (11:03)
--- NOTE | 2025-03-22 11:47 | DVH ---
XY CHEST XRAY 1 VIEW, HISTORY: CHF COMPARISON: CHEST PORTABLE on DOS: 07/24/22 CHEST PORTABLE on DOS: 07/24/22 TECHNICAL DATA: 1 view of the chest was obtained. FINDINGS: Lines and tubes: None Cardiomediastinal silhouette: normal Pulmonary vasculature: normal Lung expansion: normal Lung airspace: normal Lung interstitium: normal Pleura: normal Pneumothorax: no Bones: Unremarkable Other: no IMPRESSION: No acute intrathoracic abnormality.
[2025-03-22] MEDS ORDERED: DEXTROSE (50%) 50ML SYRG IV PRN (12:00)
[2025-03-22] MEDS: InsuLIN REG 1unit/0.01ml Soln (100units/ml) SC SCH (17:30)
[2025-03-22] MEDS: ACETAMINOPHEN 325 MG TAB PO PRN (18:01)
--- NOTE | 2025-03-22 20:29 | DVHPN2 ---
Subjective 69-year-old female with a history of insulin-dependent diabetes came with altered level of consciousness due to hypoglycemia She has a history of hypertension type 2 diabetes and kidney transplant Changes from previous H/P or p: Changes Objective Vitals Vital Signs Date Time Temp Pulse Resp B/P (MAP) Pulse Ox O2 Delivery O2 Flow Rate FiO2 03/22/25 17:00 97.1 69 16 131/75 (93) 94 97.1 03/22/25 07:30 Room Air* 0 21 Intake/Output Intake and Output 03/22/25 07:00 Intake Total 100 ml Balance 100 ml Intake Oral 100 ml General Appearance: Alert, Oriented X3, Cooperative, No acute distress Lungs: Clear to auscultation, Normal air movement Cardiovascular: Regular rate, Normal S1, Normal S2 Abdomen: Normal bowel sounds, Soft, No tenderness Extremities: No edema Medications Current Medications Medications Dose Ordered Sig/Kendrick Route Start Time Stop Time Status Last Admin Dose Admin Sodium Chloride 10 ml Q8HR IV 03/22/25 06:00 03/22/25 17:18 10 ML Ondansetron HCl 4 mg Q4HP PRN IV 03/21/25 23:30 Docusate Sodium 100 mg BIDPRN PRN PO 03/21/25 23:30 Acetaminophen 650 mg Q6HP PRN PO 03/21/25 23:30 03/22/25 18:01 650 MG Calcitriol 0.25 mcg DAILY PO 03/22/25 10:00 Fluoxetine HCl 20 mg DAILY PO 03/22/25 10:00 Furosemide 40 mg DAILY PO 03/22/25 10:00 Pantoprazole Sodium 40 mg DAILY PO 03/22/25 10:00 Apixaban 5 mg BID PO 03/22/25 10:00 Patient Own Medication 1 tab DAILY PO 03/22/25 10:00 Patient Own Medication 1 tab BID PO 03/22/25 10:00 Carvedilol 6.25 mg Q12HR PO 03/22/25 10:00 03/22/25 09:30 6.25 MG Prednisone 5 mg DAILY PO 03/23/25 10:00 Diagnostic Test (Pha) 1 strip ACHS 03/22/25 17:00 03/22/25 17:30 1 STRIP Insulin Human Regular ACHS SC 03/22/25 17:00 03/22/25 17:30 4 UNITS Dextrose 50 ml UD PRN IV 03/22/25 12:00 Patient Own Medication 1 cap DAILY PO 03/23/25 10:00 Patient Own Medication 1 DAILY PO 03/23/25 10:00 Patient Own Medication 1 DAILY PO 03/23/25 10:00 Patient Own Medication 1 DAILY PO 03/23/25 10:00 Laboratory Results Laboratory Tests 03/22/25 06:22 Chemistry Test 03/21/25 20:50 03/22/25 06:22 Albumin 4.7 g/dL (3.2-4.8) 4.1 g/dL (3.2-4.8) Calcium Level 10.5 mg/dL (8.7-10.4) H 10.0 mg/dL (8.7-10.4) Magnesium Level 1.8 mg/dL (1.6-2.6) 1.6 mg/dL (1.6-2.6) Total Protein 7.3 g/dL (5.7-8.2) 6.4 g/dL (5.7-8.2) LFT Test 03/21/25 20:50 03/22/25 06:22 Alanine Aminotransferase (ALT) 18 U/L (7-40) 13 U/L (7-40) Alkaline Phosphatase 46 U/L (46-116) 41 U/L (46-116) L Aspartate Amino Transferase (AST) 23 U/L (13-40) 20 U/L (13-40) Total Bilirubin 0.3 mg/dL (0.2-1.0) 0.3 mg/dL (0.2-1.0) HgA1c, TSH Test 03/21/25 20:50 03/22/25 06:22 Thyroid Stimulating Hormone (TSH) 1.26 uIU/mL (0.55-4.78) Hemoglobin A1c 7.2 % A1C (<5.7) H Urinalysis Test 03/22/25 06:50 Urine Color Colorless (Yellow) Urine Clarity Clear (Clear) Urine pH 6.0 (5.0-9.0) Urine Specific [place] 1.006 (1.001-1.035) Urine Protein Negative (Negative) Urine Ketones Negative (Negative) Urine Blood Negative /uL (Negative) Urine Nitrite Negative (Negative) Urine Bilirubin Negative (Negative) Urine Urobilinogen Normal mg/dL (Negative) Urine Leukocyte Esterase Negative /uL (Negative) Urine RBC None seen /hpf (0 - 4) Urine Microscopic WBC /HPF (0-5) Urine Squamous Epithelial Cells Few /hpf (<5) Urine Bacteria None seen /hpf (None Seen) Urine Glucose 1+ mg/dL (Normal) H Assessment/Plan Assessment/Plan Hypoglycemia Altered level of consciousness and metabolic encephalopathy due to hypoglycemia Insulin-dependent diabetes Chronic kidney disease status post kidney transplant Hypertension PLAN: Discontinue the IV fluids with the D5 for now Continue Accu-Cheks AC and HS We will start Lantus tomorrow once her blood glucose has been stable and no hypoglycemia anymore Resume the home medications including antirejection medications Monitor closely in the hospital Full code Advance directives discussed for 22 minutes Plan discussed with: Patient My Orders Orders - HEIDI KABA MD Procedure Category Date Status Time Glucose Blood PHA 03/22/25 In Process (Accu-Chek Comfort 17:00 Insulin R (Human) PHA 03/22/25 In Process (Insulin R) 17:00 Dextrose 50% Syringe PHA 03/22/25 In Process 12:00 Patients Own PHA 03/23/25 In Process Medication 10:00 (Nf) Linaclotide Base PHA 03/23/25 In Process (Linzess) 10:00 Patients Own PHA 25/25 In Process Medication 10:00 Patients Own PHA 25 In Process Medication 10:00 Date of Service: March 22, 2025 Billing Provider: HEIDI KABA MD Common Visit Codes: [id number] INP/OBS CARE(HIGH) Secondary Visit Codes: [id number] CARE PLAN 30 MINUTES HEIDI KABA MD March 22, 2025 20:29
[2025-03-22] MEDS: TACROLIMUS 1 MG CAP PO SCH (23:31)
[2025-03-23] VITALS (9 sets, daily range): BP systolic 117–150; BP diastolic 61–93; PULSE 58–105; RESP 12–18; TEMP 97.2–98.4; O2SAT 91–95
[2025-03-23] MEDS: ONDANSETRON HCL 4 MG/2 ML VIAL IV PRN (03:19)
[2025-03-23 07:35] LABS: Anion Gap 10 (5-15); Calcium 9.5 mg/dL (8.7-10.4); Carbon Dioxide 24 mmol/L (20-31); Chloride 104 mmol/L (98-107); Potassium 4.8 mmol/L (3.5-5.1); Sodium 138 mmol/L (136-145)
[2025-03-23 07:41] LABS: BUN/Creatinine Ratio 18.1 (10.0-20.0); Blood Urea Nitrogen 17 mg/dL (9-23)
[2025-03-23 07:44] LABS: Glucose 171 mg/dL (74-106)
[2025-03-23] MEDS: LINACLOTIDE BASE 145 MCG PO SCH (10:00)
[2025-03-23] MEDS: ENVARSUS 1 MG PO SCH (10:51)
[2025-03-23] MEDS: ENVARSUS 0.75 MG PO SCH (10:51)
[2025-03-23] MEDS: ENVARSUS 4 MG PO SCH (10:51)
--- NOTE | 2025-03-23 12:22 | DVHPN2 ---
Subjective Better No new complaints Blood sugar is in the high 100s and low 200s Changes from previous H/P or p: Changes Objective Vitals Vital Signs Date Time Temp Pulse Resp B/P (MAP) Pulse Ox O2 Delivery O2 Flow Rate FiO2 03/23/25 10:52 71 144/95 03/23/25 08:55 97.4 18 95 97.4 03/22/25 20:00 Room Air* 0 21 Intake/Output Intake and Output 03/23/25 07:00 Intake Total 1100 ml Balance 1100 ml Intake Oral 1100 ml # Voids 10 General Appearance: Alert, Oriented X3, Cooperative, No acute distress Lungs: Clear to auscultation, Normal air movement Cardiovascular: Regular rate, Normal S1, Normal S2 Abdomen: Normal bowel sounds, Soft, No tenderness Extremities: No edema Medications Current Medications Medications Dose Ordered Sig/Kendrick Route Start Time Stop Time Status Last Admin Dose Admin Sodium Chloride 10 ml Q8HR IV 03/22/25 06:00 03/23/25 03:19 10 ML Ondansetron HCl 4 mg Q4HP PRN IV 03/21/25 23:30 03/23/25 03:19 4 MG Docusate Sodium 100 mg BIDPRN PRN PO 03/21/25 23:30 Acetaminophen 650 mg Q6HP PRN PO 03/21/25 23:30 03/23/25 03:10 650 MG Calcitriol 0.25 mcg DAILY PO 03/22/25 10:00 03/23/25 10:52 0.25 MCG Fluoxetine HCl 20 mg DAILY PO 03/22/25 10:00 03/23/25 10:52 20 MG Furosemide 40 mg DAILY PO 03/22/25 10:00 Pantoprazole Sodium 40 mg DAILY PO 03/22/25 10:00 03/23/25 10:52 40 MG Apixaban 5 mg BID PO 03/22/25 10:00 03/23/25 10:53 5 MG Patient Own Medication 1 tab DAILY PO 03/22/25 10:00 03/23/25 10:50 1 TAB Patient Own Medication 1 tab BID PO 03/22/25 10:00 Carvedilol 6.25 mg Q12HR PO 03/22/25 10:00 03/23/25 10:52 6.25 MG Prednisone 5 mg DAILY PO 03/23/25 10:00 Diagnostic Test (Pha) 1 strip ACHS 03/22/25 17:00 03/23/25 05:53 1 STRIP Insulin Human Regular ACHS SC 03/22/25 17:00 03/23/25 05:53 2 UNITS Dextrose 50 ml UD PRN IV 03/22/25 12:00 Patient Own Medication 1 cap DAILY PO 03/23/25 10:00 Patient Own Medication 1 DAILY PO 03/23/25 10:00 03/23/25 10:51 1 Patient Own Medication 1 DAILY PO 03/23/25 10:00 03/23/25 10:51 1 Patient Own Medication 1 DAILY PO 03/23/25 10:00 03/23/25 10:51 1 Tacrolimus 1 mg BID PO 03/22/25 23:15 03/22/25 23:31 1 MG Laboratory Results Laboratory Tests 03/22/25 06:22 03/23/25 06:07 Chemistry Test 03/23/25 06:07 Calcium Level 9.5 mg/dL (8.7-10.4) Urinalysis Test 03/22/25 06:50 Urine Color Colorless (Yellow) Urine Clarity Clear (Clear) Urine pH 6.0 (5.0-9.0) Urine Specific [place] 1.006 (1.001-1.035) Urine Protein Negative (Negative) Urine Ketones Negative (Negative) Urine Blood Negative /uL (Negative) Urine Nitrite Negative (Negative) Urine Bilirubin Negative (Negative) Urine Urobilinogen Normal mg/dL (Negative) Urine Leukocyte Esterase Negative /uL (Negative) Urine RBC None seen /hpf (0 - 4) Urine Microscopic WBC /HPF (0-5) Urine Squamous Epithelial Cells Few /hpf (<5) Urine Bacteria None seen /hpf (None Seen) Urine Glucose 1+ mg/dL (Normal) H Assessment/Plan Assessment/Plan Hypoglycemia Altered level of consciousness and metabolic encephalopathy due to hypoglycemia Insulin-dependent diabetes Chronic kidney disease status post kidney transplant Hypertension PLAN: Discontinue the IV fluids with the D5 for now Continue Accu-Cheks AC and HS We will start Lantus tomorrow once her blood glucose has been stable and no hypoglycemia anymore Resume the home medications including antirejection medications Monitor closely in the hospital Full code Advance directives discussed for 22 minutes 03/23/2025: Add Lantus 5 units twice a day Continue current management Resume the home medications including the anti-rejection medications Monitor closely in the hospital 1 more day Plan discussed with: Patient, Spouse My Orders Orders - HEIDI KABA MD Procedure Category Date Status Time Patients Own PHA 03/23/25 In Process Medication 10:00 Patients Own PHA 03/23/25 In Process Medication 10:00 Date of Service: March 23, 2025 Billing Provider: HEIDI KABA MD Common Visit Codes: [id number] INP/OBS CARE(HIGH) HEIDI KABA MD March 23, 2025 12:22
[2025-03-23] MEDS: predniSONE 5 MG TAB PO SCH (12:25)
[2025-03-23] MEDS: INSULIN LANTUS (GLARGINE) 1 /0.01ml (100units/ml) SC ONE (16:23)
[2025-03-23] MEDS: INSULIN LANTUS (GLARGINE) 1 /0.01ml (100units/ml) SC SCH (21:25)
[2025-03-24] VITALS (7 sets, daily range): BP systolic 99–147; BP diastolic 52–89; PULSE 64–80; RESP 17–20; TEMP 97.4–98.9; O2SAT 92–97
--- NOTE | 2025-03-24 11:17 | DVHDS2 ---
Discharge Summary Date of Admission March 21, 2025 at 23:18 Date of Discharge: March 24, 2025 Labs/Diagnostic Data: Laboratory Results Test 03/24/25 10:10 03/23/25 06:07 03/22/25 06:50 03/22/25 06:22 POC Glucose 244 mg/dl (70-106) Sodium Level 138 mmol/L (136-145) Potassium Level 4.8 mmol/L (3.5-5.1) Chloride Level 104 mmol/L (98-107) Carbon Dioxide Level 24 mmol/L (20-31) Anion Gap 10 (5-15) Blood Urea Nitrogen 17 mg/dL (9-23) Creatinine 0.94 mg/dL (0.550-1.02) Glomerular Filtration Rate Calc 65 mL/min (>90) BUN/Creatinine Ratio 18.1 (10.0-20.0) Serum Glucose 171 mg/dL (74-106) Calcium Level 9.5 mg/dL (8.7-10.4) Urine Color Colorless (Yellow) Urine Clarity Clear (Clear) Urine pH 6.0 (5.0-9.0) Urine Specific [place] 1.006 (1.001-1.035) Urine Protein Negative (Negative) Urine Ketones Negative (Negative) Urine Blood Negative /uL (Negative) Urine Nitrite Negative (Negative) Urine Bilirubin Negative (Negative) Urine Urobilinogen Normal mg/dL (Negative) Urine Leukocyte Esterase Negative /uL (Negative) Urine RBC None seen /hpf (0 - 4) Urine Microscopic WBC /HPF (0-5) Urine Squamous Epithelial Cells Few /hpf (<5) Urine Bacteria None seen /hpf (None Seen) Urine Glucose 1+ mg/dL (Normal) White Blood Count 5.8 10^3/uL (4.4-10.8) Red Blood Count 4.10 10^6/uL (4.0-5.20) Hemoglobin 12.2 g/dL (12.2-16.2) Hematocrit 37.1 % (36.0-46.0) Mean Corpuscular Volume 90.5 fL (80.0-100.0) Mean Corpuscular Hemoglobin 29.8 pg (28.0-32.0) Mean Corpuscular Hemoglobin Concent 32.9 g/dL (32.0-36.0) Red Cell Distribution Width 14.8 % (11.8-14.3) Platelet Count 163 10^3/uL (140-450) Mean Platelet Volume 9.8 fL (6.9-10.8) Neutrophils (%) (Auto) 49.9 % (37.0-80.0) Lymphocytes (%) (Auto) 40.6 % (10.0-50.0) Monocytes (%) (Auto) 8.4 % (0.0-12.0) Eosinophils (%) (Auto) 0.8 % (0.0-7.0) Basophils (%) (Auto) 0.3 % (0.0-2.0) Neutrophils # (Auto) 2.9 10 ^3/uL (1.6-8.6) Lymphocytes # (Auto) 2.4 10 ^3/uL (0.4-5.4) Monocytes # (Auto) 0.5 10 ^3/uL (0-1.3) Eosinophils # (Auto) 0 10 ^3/uL (0-0.8) Basophils # (Auto) 0 10 ^3/uL (0-0.2) Nucleated Red Blood Cells 0.1 % Hemoglobin A1c 7.2 % A1C (<5.7) Magnesium Level 1.6 mg/dL (1.6-2.6) Total Bilirubin 0.3 mg/dL (0.2-1.0) Aspartate Amino Transferase (AST) 20 U/L (13-40) Alanine Aminotransferase (ALT) 13 U/L (7-40) Alkaline Phosphatase 41 U/L (46-116) Total Protein 6.4 g/dL (5.7-8.2) Albumin 4.1 g/dL (3.2-4.8) Vitamin B12 Level 578 pg/mL (211-911) Vitamin D 25-Hydroxy 32.9 ng/mL (30.0-100) Test 03/21/25 20:50 Thyroid Stimulating Hormone (TSH) 1.26 uIU/mL (0.55-4.78) Other Laboratory Tests 03/23/25 06:07 03/22/25 06:22 Brief Hx & Hospital Course: Final diagnoses: Hypoglycemia Altered level of consciousness and metabolic encephalopathy due to hypoglycemia Insulin-dependent diabetes Chronic kidney disease status post kidney transplant Hypertension 69-year-old female who was admitted for hypoglycemia She takes insulin at home showed extreme before meals and long-acting at bedtime Here she was given D5 W infusion and her sugar improved Yesterday she was started on small dose Lantus 5 units twice a day She is asymptomatic now The patient can be discharged home She was instructed to cut down on her insulin dose Cut down her insulin long acting from 24-20 units daily and her short-acting insulin to cut it in half to 4 units before breakfast 5 units before lunch and 6 units before dinner Follow up with the primary care physician as soon as possible Condition at Discharge: Stable Final Diagnosis/Problems List Hypoglycemia Altered level of consciousness and metabolic encephalopathy due to hypoglycemia Insulin-dependent diabetes Chronic kidney disease status post kidney transplant Hypertension Discharge Disposition: Home SNF Discharge Will this Physician continue t: No Discharge Instruct/Medications Diet: Consistent carbohydrate, Cardiac 2g Na,low cholest Activity: No Restrictions, As Tolerated Follow Up/Referral: PCP as soon as possible Medications: Same home medications Cut down on her fast acting insulin to half before meals Cut down on her long-acting insulin from 24-20 units daily at bedtime Discharge Statement: "Patient was advised to return to the ER or call 911 if any headaches, dizziness, shortness of breath, chest pain, abdominal pain, bleeding, fevers, or worsening of medical condition. Patient was counseled about treatment plan, medications, possible side effects, patientverbalized understanding. All questions were answered to the best of my ability. This discharge took greater then 30 minutes in planning, reviewing documentation, counseling the patient, and discussing with other team members." ASSESSMENT ASSESSMENT Assessment Hypoglycemia Altered level of consciousness and metabolic encephalopathy due to hypoglycemia Insulin-dependent diabetes Chronic kidney disease status post kidney transplant Hypertension Date of Service: March 24, 2025 Billing Provider: HEIDI KABA MD Common Visit Codes: [id number] DISCH DAY >30min HEIDI KABA MD March 24, 2025 11:17
[2025-03-24 12:12] LABS: Folate (Folic Acid) 6.8 ng/mL (>5.38)
== END 2025-03-24 14:15 | disposition home or self-care (01) | DRG 637 ==
LOC: EDBD 19:41 → EDUNIT# 19:41 → ER 19:44 → OVERFLOW 23:18 → TELE-EAST 03-22 02:55
PROVIDERS: ADMIT Internal Medicine; ATTEND Emergency Medicine
DX: E11.649 Type 2 diabetes mellitus with hypoglycemia without coma (principal); G93.41 Metabolic encephalopathy; I13.0 Hypertensive heart and chronic kidney disease with heart failure and stage 1 through stage 4 chronic kidney disease, or unspecified chronic kidney disease; Z94.0 Kidney transplant status; N18.9 Chronic kidney disease, unspecified; E11.22 Type 2 diabetes mellitus with diabetic chronic kidney disease; I50.9 Heart failure, unspecified; Z79.4 Long term (current) use of insulin; Z86.711 Personal history of pulmonary embolism; Z88.3 Allergy status to other anti-infective agents; Z85.3 Personal history of malignant neoplasm of breast; Z90.710 Acquired absence of both cervix and uterus; Z92.3 Personal history of irradiation; Z88.8 Allergy status to other drugs, medicaments and biological substances; Z79.899 Other long term (current) drug therapy; Z79.82 Long term (current) use of aspirin; Y92.89 Other specified places as the place of occurrence of the external cause; T38.3X5A Adverse effect of insulin and oral hypoglycemic [antidiabetic] drugs, initial encounter
CPT/HCPCS: 36415; 71045; 80048; 80053; 81001; 82306; 82607; 82746; 82962; 83036; 83735; 84443; 85025; 96374; 99291; G0378; J1815; J2405; J7507